=== PATIENT | male | born 1980 | race Hispanic/Latino ===

== ENCOUNTER 2020-09-18 01:21 | Inpatient (IN) | payer SELFPAY ==
[2020-09-18 02:36] VITALS: BMI 32.6
[2020-09-18] MEDS ORDERED: Morphine 2 MG/ML VIAL SLOW IVP PRN (02:40)
[2020-09-18] MEDS ORDERED: VANCOMYCIN 1.25 GM/250 ML BAG 1.25 GM in Premix Bag 1 BAG IVPB SCH (03:00)
[2020-09-18] MEDS: Gentamicin Sulfate 80 MG in Premix Bag 1 BAG IVPB SCH ×3 (03:22→20:32)
[2020-09-18] MEDS: Ketorolac Tromethamine 30 MG/ML VIAL IVP SCH ×3 (04:58→17:02)
[2020-09-18] MEDS ORDERED: Acetaminophen 650 MG Suppository PR PRN (07:57)
[2020-09-18] MEDS ORDERED: Ondansetron ODT 4 MG TAB PO PRN (07:57)
[2020-09-18] MEDS ORDERED: Diazepam 5 MG TAB PO PRN (08:07)
[2020-09-18] MEDS ORDERED: Diazepam 5 MG TAB PO SCH (08:15)
[2020-09-18] MEDS ORDERED: Thiamine HCl 200 MG/2 ML VIAL IM SCH (08:15)
[2020-09-18 09:11] LABS: SARS-CoV-2 PCR by NAA Not Detected (NotDetected)
[2020-09-18] MEDS: Folic Acid 1 MG TAB PO SCH (09:19)
[2020-09-18] MEDS: Multivitamin W/ Minerals 1 TAB PO SCH (09:19)
[2020-09-18] MEDS: Sodium Chloride 0.9% 1,000 ML IV SCH (09:21)
[2020-09-18] MEDS: Morphine 4 MG/ML VIAL SLOW IVP PRN ×3 (09:27→22:22)
[2020-09-18 09:38] LABS: Hemoglobin A1c 11.9 % (4.0-6.0); Lactic Acid 3.1 mmol/L (0.5-2.2)
[2020-09-18] MEDS: VANCOMYCIN 1.25 GM/250 ML BAG 1.25 GM in Premix Bag 1 BAG IVPB SCH (15:33)
[2020-09-18] MEDS: Acetaminophen 325 MG TAB PO PRN (17:05)
[2020-09-18] MEDS ORDERED: Morphine 2 MG/ML VIAL SLOW IVP SCH (17:15)
[2020-09-18] MEDS: Ondansetron PF 4 MG/2 ML Vial IVP PRN (22:29)
[2020-09-19] MEDS: Ketorolac Tromethamine 30 MG/ML VIAL IVP SCH ×5 (00:26→23:40)
[2020-09-19] MEDS: Morphine 4 MG/ML VIAL SLOW IVP PRN ×4 (02:19→20:33)
[2020-09-19] MEDS: VANCOMYCIN 1.25 GM/250 ML BAG 1.25 GM in Premix Bag 1 BAG IVPB SCH ×2 (03:09→15:32)
[2020-09-19] MEDS ORDERED: Diazepam 5 MG TAB PO PRN (04:00)
[2020-09-19] MEDS: Gentamicin Sulfate 80 MG in Premix Bag 1 BAG IVPB SCH ×3 (04:45→20:17)
[2020-09-19 05:43] LABS: #Basophils 0.1 thou/uL (0.0-0.2); #Eosinphils 0.1 thou/uL (0.0-0.7); #Lymphocytes 2.3 thou/uL (1.20-3.40); #Monocytes 1.2 thou/uL (0.11-0.59); #Neutrophils 4.9 thou/uL (1.40-6.50); %Basophils 0.7 % (0.0-1.0); %Eosinophils 1.7 % (0.0-10.0); %Lymphocytes 27.1 % (21.0-51.0); %Monocytes 13.8 % (0.0-10.0); %Neutrophils 56.8 % (42.0-75.0); Hemoglobin 13.1 g/dL (14.0-18.0); Mean Corpuscular HGB CONC 33.3 g/dL (32.0-36.0); Mean Corpuscular Hemoglobin 29.8 pg (27.0-31.0); Mean Corpuscular Volume 89.5 fL (78.0-98.0); Mean Platelet Volume 7.2 fL (7.4-10.4); Platelet Count 263 thou/uL (130-400); RBC Distribution Width 11.8 % (11.5-14.5); White Blood Cell (WBC) Count 8.7 thou/uL (4.8-10.8)
[2020-09-19 06:03] LABS: Anion Gap 11 mmol/L (10-20); BUN (Urea Nitrogen) 12 mg/dL (8.9-20.6); Calc. Creatinine Clearance 154 mL/min (70-130); Calcium 8.7 mg/dL (7.8-10.44); Carbon Dioxide 28 mmol/L (22-29); Chloride 101 mmol/L (98-107); Glucose 211 mg/dL (70-105); Potassium 4.1 mmol/L (3.5-5.1); Sodium 136 mmol/L (136-145)
[2020-09-19] MEDS ORDERED: Lidocaine 2% Viscous Solution 10 ML, Aluminum & Magnesium Hydroxide 30 ML SSW SCH (06:30)
[2020-09-19] MEDS ORDERED: HumaLOG 300 UNITS/3 ML VIAL SC PRN (08:17)
[2020-09-19] MEDS ORDERED: Dextrose 50% Abboject 50 ML SYRINGE SLOW IVP PRN (08:17)
[2020-09-19] MEDS ORDERED: Dextrose 5% in Water 1,000 ML IV PRN (08:17)
[2020-09-19] MEDS: Magnesium Oxide 400 MG TAB PO SCH (09:06)
[2020-09-19] MEDS: Multivitamin W/ Minerals 1 TAB PO SCH (09:06)
[2020-09-19] MEDS: Folic Acid 1 MG TAB PO SCH (09:06)
[2020-09-19] MEDS: Thiamine 100 MG TAB PO SCH (09:07)
[2020-09-19] MEDS ORDERED: HYDROmorphone 0.5 MG/0.5 ML SYRINGE ONE (09:26)
[2020-09-19] MEDS ORDERED: Dexmedetomidine 200 MCG/2 ML VIAL ONE (09:26)
[2020-09-19] MEDS ORDERED: Phenylephrine 10 MG/ML VIAL ONE (09:26)
[2020-09-19] MEDS ORDERED: Bupivacaine PF 0.5% 30 ML VIAL ONE (10:29)
[2020-09-19] MEDS ORDERED: Sodium Chloride 0.9% 10 ML ONE (10:30)
[2020-09-19] MEDS ORDERED: Bacitracin Zinc Ointment 30 gm TUBE ONE (10:30)
[2020-09-19] MEDS ORDERED: Fentanyl 100 MCG/2 ML VIAL ONE ×3 (10:40→10:59)
[2020-09-19] MEDS ORDERED: Sodium Chloride 0.9% 30 ML ONE (10:55)
[2020-09-19] MEDS ORDERED: Morphine 4 MG/ML VIAL ONE (10:56)
[2020-09-19] MEDS ORDERED: Midazolam HCl 2 mg/2 ml Vial ONE (10:59)
[2020-09-19] MEDS ORDERED: PROPOFOL 200 MG/20 ML VIAL ONE (11:13)
[2020-09-19] MEDS ORDERED: Ondansetron PF 4 MG/2 ML Vial ONE (11:13)
[2020-09-19] MEDS ORDERED: diphenhydrAMINE 50 MG/ML VIAL ONE (11:13)
[2020-09-19] MEDS ORDERED: Ketorolac Tromethamine 30 MG/ML VIAL ONE (11:13)
[2020-09-19] MEDS ORDERED: Dexamethasone 20 MG/5 ML VIAL ONE (11:13)
[2020-09-19] MEDS ORDERED: Promethazine HCl 25 MG/ML VIAL IM PRN ×2 (11:18→12:32)
[2020-09-19] MEDS ORDERED: Promethazine HCl 25 MG/ML VIAL SLOW IVP PRN ×2 (11:18→12:32)
[2020-09-19] MEDS ORDERED: Ondansetron HCl/PF 4 MG/2 ML Vial IVP PRN ×2 (11:18→12:32)
[2020-09-19] MEDS ORDERED: Meperidine HCl/PF 25 MG/ML VIAL SLOW IVP PRN (12:32)
[2020-09-19] MEDS ORDERED: PACU-Morphine 4MG/ML VIAL SLOW IVP PRN (12:32)
[2020-09-19] MEDS ORDERED: Morphine Sulfate 2 MG/ML SYRINGE SLOW IVP PRN (12:32)
[2020-09-19] MEDS: Sodium Chloride 0.9% 1,000 ML IV SCH (16:00)
[2020-09-19] MEDS: HumaLOG 300 UNITS/3 ML VIAL SC PRN (16:33)
[2020-09-20] MEDS: Acetaminophen 325 MG TAB PO PRN ×2 (00:04→15:54)
[2020-09-20] MEDS: Morphine 4 MG/ML VIAL SLOW IVP PRN ×5 (00:29→23:43)
[2020-09-20] MEDS: VANCOMYCIN 1.25 GM/250 ML BAG 1.25 GM in Premix Bag 1 BAG IVPB SCH ×2 (04:15→15:40)
[2020-09-20] MEDS: Gentamicin Sulfate 80 MG in Premix Bag 1 BAG IVPB SCH ×3 (06:09→21:19)
[2020-09-20] MEDS: Ketorolac Tromethamine 30 MG/ML VIAL IVP SCH ×2 (06:10→12:42)
[2020-09-20 06:14] LABS: #Lymphocytes 1.7 thou/uL (1.20-3.40); #Monocytes 0.8 thou/uL (0.11-0.59); #Neutrophils 3.9 thou/uL (1.40-6.50); %Eosinophils 0.1 % (0.0-10.0); %Lymphocytes 26.4 % (21.0-51.0); %Neutrophils 60.5 % (42.0-75.0); Hemoglobin 12.9 g/dL (14.0-18.0); Mean Corpuscular HGB CONC 34.3 g/dL (32.0-36.0); Mean Corpuscular Hemoglobin 30.6 pg (27.0-31.0); Mean Corpuscular Volume 89.1 fL (78.0-98.0); Mean Platelet Volume 7.3 fL (7.4-10.4); Platelet Count 290 thou/uL (130-400); RBC Distribution Width 11.7 % (11.5-14.5); Red Blood Cell (RBC) Count 4.21 mill/uL (4.70-6.10); White Blood Cell (WBC) Count 6.5 thou/uL (4.8-10.8)
[2020-09-20] MEDS: HumaLOG 300 UNITS/3 ML VIAL SC PRN ×3 (06:14→18:40)
[2020-09-20 06:33] LABS: Anion Gap 14 mmol/L (10-20); BUN (Urea Nitrogen) 16 mg/dL (8.9-20.6); Calc. Creatinine Clearance 169 mL/min (70-130); Calcium 8.8 mg/dL (7.8-10.44); Carbon Dioxide 22 mmol/L (22-29); Chloride 103 mmol/L (98-107); Glucose 249 mg/dL (70-105); Potassium 4.3 mmol/L (3.5-5.1); Sodium 135 mmol/L (136-145)
[2020-09-20] MEDS: Sodium Chloride 0.9% 1,000 ML IV SCH ×2 (07:21→15:41)
[2020-09-20] MEDS: Magnesium Oxide 400 MG TAB PO SCH (09:21)
[2020-09-20] MEDS: Multivitamin W/ Minerals 1 TAB PO SCH (09:21)
[2020-09-20] MEDS: Folic Acid 1 MG TAB PO SCH (09:21)
[2020-09-20] MEDS: Thiamine 100 MG TAB PO SCH (09:21)
[2020-09-20] MEDS: Ibuprofen 600 MG TAB PO PRN (15:41)
[2020-09-20] MEDS: metFORMIN 500 MG TAB PO SCH (18:38)
[2020-09-21] MEDS: Ondansetron PF 4 MG/2 ML Vial IVP PRN ×2 (01:45→17:06)
[2020-09-21] MEDS: VANCOMYCIN 1.25 GM/250 ML BAG 1.25 GM in Premix Bag 1 BAG IVPB SCH ×2 (03:48→14:56)
[2020-09-21] MEDS: Gentamicin Sulfate 80 MG in Premix Bag 1 BAG IVPB SCH ×2 (04:53→11:37)
[2020-09-21] MEDS: Morphine 4 MG/ML VIAL SLOW IVP PRN (05:12)
[2020-09-21 05:42] LABS: Anion Gap 14 mmol/L (10-20); BUN (Urea Nitrogen) 16 mg/dL (8.9-20.6); Calc. Creatinine Clearance 184 mL/min (70-130); Calcium 8.3 mg/dL (7.8-10.44); Carbon Dioxide 21 mmol/L (22-29); Chloride 103 mmol/L (98-107); Glucose 171 mg/dL (70-105); Sodium 134 mmol/L (136-145)
[2020-09-21] MEDS: Sodium Chloride 0.9% 1,000 ML IV SCH ×2 (08:44→17:02)
[2020-09-21] MEDS: metFORMIN 500 MG TAB PO SCH ×2 (09:30→17:03)
[2020-09-21] MEDS: Magnesium Oxide 400 MG TAB PO SCH (09:31)
[2020-09-21] MEDS: Ibuprofen 600 MG TAB PO PRN ×3 (09:31→23:37)
[2020-09-21] MEDS: Thiamine 100 MG TAB PO SCH (09:31)
[2020-09-21] MEDS: Folic Acid 1 MG TAB PO SCH (09:31)
[2020-09-21] MEDS: HYDROcodone/Acetaminophen 7.5/325 mg Tablet PO PRN ×3 (10:52→23:37)
[2020-09-21] MEDS: HumaLOG 300 UNITS/3 ML VIAL SC PRN ×2 (11:39→17:03)
[2020-09-21] MEDS: Cefepime 2 GM in Sodium Chloride 0.9% 100 ML IVPB SCH (17:02)
[2020-09-22] MEDS: Morphine 4 MG/ML VIAL SLOW IVP PRN ×2 (00:25→09:02)
[2020-09-22] MEDS: Cefepime 2 GM in Sodium Chloride 0.9% 100 ML IVPB SCH ×2 (03:51→15:44)
[2020-09-22] MEDS: Sodium Chloride 0.9% 1,000 ML IV SCH ×3 (05:14→22:05)
[2020-09-22] MEDS: HumaLOG 300 UNITS/3 ML VIAL SC PRN ×2 (05:53→19:15)
[2020-09-22] MEDS: Ondansetron PF 4 MG/2 ML Vial IVP PRN ×2 (05:57→19:29)
[2020-09-22] MEDS: HYDROcodone/Acetaminophen 7.5/325 mg Tablet PO PRN ×2 (05:57→19:29)
[2020-09-22] MEDS: Folic Acid 1 MG TAB PO SCH (07:34)
[2020-09-22] MEDS: Magnesium Oxide 400 MG TAB PO SCH (07:34)
[2020-09-22] MEDS: Thiamine 100 MG TAB PO SCH (07:34)
[2020-09-22] MEDS: metFORMIN 500 MG TAB PO SCH ×2 (07:34→18:08)
[2020-09-22 10:42] LABS: Fungus Stain Final report (.)
[2020-09-22 10:42] LABS: Fungus Stain Final report (.)
[2020-09-22] MEDS ORDERED: Bacitracin Zinc Ointment 30 gm TUBE ONE (15:34)
[2020-09-22] MEDS ORDERED: Bupivacaine PF 0.5% 30 ML VIAL ONE (15:34)
[2020-09-22] MEDS ORDERED: Fentanyl 100 MCG/2 ML VIAL ONE ×2 (15:45→17:22)
[2020-09-22] MEDS ORDERED: Sodium Chloride 0.9% 10 ML ONE (15:47)
[2020-09-22] MEDS ORDERED: PROPOFOL 200 MG/20 ML VIAL ONE (16:16)
[2020-09-22] MEDS ORDERED: Ondansetron PF 4 MG/2 ML Vial ONE (16:16)
[2020-09-22] MEDS ORDERED: Ketorolac Tromethamine 30 MG/ML VIAL ONE (16:16)
[2020-09-22] MEDS ORDERED: Dexamethasone 20 MG/5 ML VIAL ONE (16:16)
[2020-09-22] MEDS ORDERED: Lidocaine 1% PF 5 ML VIAL ONE (16:16)
[2020-09-22] MEDS ORDERED: Mineral Oil Sterile 10ML 10 ML UDCUP ONE (17:11)
[2020-09-22] MEDS ORDERED: HYDROmorphone 2 MG/ML VIAL SLOW IVP PRN (18:11)
[2020-09-22] MEDS ORDERED: Ondansetron HCl/PF 4 MG/2 ML Vial IVP PRN (18:11)
[2020-09-22] MEDS ORDERED: Promethazine HCl 25 MG/ML VIAL SLOW IVP PRN (18:11)
[2020-09-22] MEDS ORDERED: Promethazine HCl 25 MG/ML VIAL IM PRN (18:11)
[2020-09-22] MEDS: Ibuprofen 600 MG TAB PO PRN (19:29)
[2020-09-23] MEDS: Cefepime 2 GM in Sodium Chloride 0.9% 100 ML IVPB SCH (05:03)
[2020-09-23] MEDS: HumaLOG 300 UNITS/3 ML VIAL SC PRN (05:10)
[2020-09-23] MEDS: Ibuprofen 600 MG TAB PO PRN (05:13)
[2020-09-23] MEDS: HYDROcodone/Acetaminophen 7.5/325 mg Tablet PO PRN ×2 (05:14→09:11)
[2020-09-23 07:54] VITALS: BP 125/75; TEMP 97.8
[2020-09-23] MEDS: metFORMIN 500 MG TAB PO SCH (08:40)
[2020-09-23] MEDS: Folic Acid 1 MG TAB PO SCH (08:40)
[2020-09-23] MEDS: Thiamine 100 MG TAB PO SCH (08:40)
[2020-09-23] MEDS: Magnesium Oxide 400 MG TAB PO SCH (08:40)
[2020-10-18 09:37] LABS: Fungus Culture Final report (.)
[2020-10-18 09:37] LABS: Fungus Culture Final report (.)
== END 2020-09-23 10:50 | disposition home or self-care (01) | DRG 854 ==
LOC: SURG B 02:04
PROVIDERS: ADMIT Student in an Organized Health Care Education/Training Program; ATTEND Internal Medicine
PROC: 0HRFX73 Replacement of Right Hand Skin with Autologous Tissue Substitute, Full Thickness, External Approach (ICD-10-PCS; 2020-09-18)
PROC: 0LB70ZZ Excision of Right Hand Tendon, Open Approach (ICD-10-PCS; 2020-09-18)
PROC: 0R9W0ZZ Drainage of Right Finger Phalangeal Joint, Open Approach (ICD-10-PCS; principal; 2020-09-19)
PROC: 0LB70ZZ Excision of Right Hand Tendon, Open Approach (ICD-10-PCS; 2020-09-19)
DX: A41.9 Sepsis, unspecified organism (principal); L02.511 Cutaneous abscess of right hand; I10 Essential (primary) hypertension; F17.210 Nicotine dependence, cigarettes, uncomplicated; S68.122A Partial traumatic metacarpophalangeal amputation of right middle finger, initial encounter; Y93.H3 Activity, building and construction; F10.10 Alcohol abuse, uncomplicated; L03.011 Cellulitis of right finger; E11.9 Type 2 diabetes mellitus without complications; Z71.6 Tobacco abuse counseling; E78.5 Hyperlipidemia, unspecified; M65.9 Synovitis and tenosynovitis, unspecified
CPT/HCPCS: 36415; 36416; 80048; 82607; 82746; 83036; 83605; 83735; 85025; 87070; 87076; 87077; 87102; 87116; 87186; 87205; 87206; 87635; J0692; J1100; J1170; J1200; J1580; J1815; J1885; J2250; J2270; J2370; J2405; J2704; J3010; J3370; J3411; J3475; J3490; S0020; U0003; U0005